=== PATIENT | female | born 1980 | race Caucasian/White ===

== ENCOUNTER → 2019-04-17 | Outpatient (CLI) | payer BC ==
--- NOTE | 2019-04-20 10:09 | PATHOLOGY ---
Note [facility] Accession Number: [id number] TESTS RESULT FLAG UNITS REF RANGE LAB Clinician Provided Cytology Information No. 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 PROTEINACEOUS MATERIAL IS PRESENT. RED BLOOD CELLS ARE PRESENT. Signed out by: Vinny Mccain MD, Pathologist NPI- [id number] Performed by: Jessica Ngo, Die Casting Machine Operator ([facility]) Fortino Zhang Die Casting Machine Operator ([facility]) Gross description: 01 23ML, LIGHT PINK, CLEAR /LCS FLAG LEGEND: L-Low Normal,H-High Normal,LL-Alert Low,HH-Alert High <-Panic Low,>-Panic High,A-Abnormal,AA-Critical Abnormal Performed at: [address] [address] Martin Ambrose MD, [address] [address] Marc Hawley MD, Specimen Comment: A courtesy copy of this report has been sent to Specimen Comment: [phone], . Specimen Comment: Report sent to / DR FREITAS Performed at: [address] [place] [id number] MD Martin Ambrose MD Phone: [phone]
== END | disposition home or self-care (01) ==
LOC: SPEC 14:09
PROVIDERS: ATTEND Dentist Oral and Maxillofacial Surgery
DX: K66.1 Hemoperitoneum (principal)
CPT/HCPCS: 88112